=== PATIENT | male | born 2000 ===

== ENCOUNTER 2022-08-25 14:26 | Emergency (ER) | payer OTHER, BC, MEDICAID ==
[2022-08-25] MEDS ORDERED: Diphtheria,Pertussis(Acell),Tetanus Vaccine 0.5 ML Syringe IM ONE (17:03)
[2022-08-25] MEDS ORDERED: Octyl 2-Cyanoacrylate 0.5 g/0.5 mL 1 APPLIC TUBE TOP STA (17:24)
== END 2022-08-25 18:01 | disposition home or self-care (01) ==
LOC: MW.ED 14:26
DX: S61.210A Laceration without foreign body of right index finger without damage to nail, initial encounter (principal); Z23 Encounter for immunization; W26.8XXA Contact with other sharp object(s), not elsewhere classified, initial encounter; Y93.G1 Activity, food preparation and clean up
CPT/HCPCS: 90471; 90715; 99283; A9270

== ENCOUNTER 2023-09-14 22:26 | Emergency (ER) | payer MEDICAID, OTHER | END 2023-09-14 23:03 | disposition home or self-care (01) | LOC: MW.ED 22:26 | DX: S61.210A Laceration without foreign body of right index finger without damage to nail, initial encounter (principal); W45.8XXA Other foreign body or object entering through skin, initial encounter | CPT/HCPCS: 10120; 99283; 99283-25 ==

== ENCOUNTER 2023-09-27 11:14 | Emergency (ER) | payer MEDICAID, OTHER ==
[2023-09-27] MEDS: LORazepam 0.5 MG Tab PO ONE (12:08)
[2023-09-27] MEDS: Sodium Chloride 0.9% 1,000 ML IV ONE (12:10)
== END 2023-09-27 12:55 | disposition home or self-care (01) ==
LOC: MW.ED 11:14
DX: F41.0 Panic disorder [episodic paroxysmal anxiety] (principal); Z75.8 Other problems related to medical facilities and other health care
CPT/HCPCS: 99283; A9270